=== PATIENT | female | born 1995 | race African-American/Black ===

== ENCOUNTER 2022-03-26 17:24 | Emergency (ER) | payer OTHER, SELFPAY ==
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
[2022-03-26 17:33] VITALS: BP 140/80; PULSE 85; RESP 16; TEMP 36.8; O2SAT 100
[2022-03-26] MEDS: diazePAM (*CRX) 5 MG TABLET PO (19:47)
[2022-03-26] MEDS: KETOROLAC (*BKC) 60 MG/2 ML VIAL IM (19:47)
--- NOTE | 2022-03-26 20:05 | PC.NURSE ---
Pt reports she had a tubal ligation. CT notified.
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
[2022-03-26 20:41] LABS: Bacteria Urine Trace /hpf; Mucus Urine Rare /lpf; RBC Urine >75 /hpf (0-2); Squamous Epithelial Cell Urine Moderate /hpf (Few); WBC Urine 31-50 /hpf
[2022-03-26 20:42] LABS: Appearance Urine Cloudy (Clear); Color Urine Yellow (Yellow)
[2022-03-26 20:44] LABS: Bilirubin Urine Negative (Negative); Blood Urine 3+ (Negative); Glucose Urine UA Negative (Negative); Ketones Urine Negative (Negative); Nitrate Urine Positive (Negative); Protein Urine Trace mg/dL (Negative); pH Urine 8.5 (5.0-9.0)
[2022-03-26 20:45] LABS: Add Urine Microscopic? YES; Leukocyte Esterase Ur 1+ LEU/UL (Negative)
== END 2022-03-26 21:22 | disposition home or self-care (01) ==
PROVIDERS: Emergency Provider Emergency Medicine
DX: N39.0 Urinary tract infection, site not specified (principal); S13.4XXA Sprain of ligaments of cervical spine, initial encounter; V43.62XA Car passenger injured in collision with other type car in traffic accident, initial encounter
CPT/HCPCS: 74176; 81001; 87077; 87086; 87186; 96372; 99284; A9270; J1885